=== PATIENT | female | born 1980 | race Caucasian/White ===

== ENCOUNTER 2020-03-01 14:32 | Outpatient (CLI) | payer OTHER ==
[~2020-03-01] VITALS: Ht 162.6 cm; Wt 95.0 kg
[2020-03-01 15:25] LABS: MICROSCOPIC AUTO
[2020-03-01 19:14] LABS: AMPHETAMINE SCREEN, URINE Negative (Negative); BARBITURATE SCREEN, URINE Negative (Negative); BENZODIAZEPINE SCREEN, URINE Negative (Negative); CANNABINOID SCREEN, URINE Negative (Negative); COCAINE SCREEN, URINE Negative (Negative); METHADONE SCREEN, URINE Negative (Negative); OPIATE SCREEN, URINE Negative (Negative)
== END 2020-03-01 16:24 | disposition home or self-care (01) ==
LOC: LDOP 14:32
PROVIDERS: ATTEND Obstetrics & Gynecology
DX: O09.92 Supervision of high risk pregnancy, unspecified, second trimester (principal); O12.02 Gestational edema, second trimester; O32.1XX0 Maternal care for breech presentation, not applicable or unspecified; Z3A.22 22 weeks gestation of pregnancy
CPT/HCPCS: 76805; 80307; 81001; 87086; 93970; 99201; G0463